=== PATIENT | female | born 1990 | race Two or more races ===

== ENCOUNTER 2024-10-31 10:13 | Emergency (ER) | payer MEDICAID, SELFPAY ==
[2024-10-31 10:57] VITALS: BP 135/88; PULSE 65; RESP 17; TEMP 36.9; O2SAT 98; BMI 27.1
--- NOTE | 2024-10-31 11:22 | PD.EDRME ---
Rapid Medical Screening Exam RME Arrival date/time: 10/31/24 10:13 Chief Complaint: Urogenital-Female Vital signs: Vital Signs Temperature 98.5 F 10/31/24 10:57 Pulse Rate 65 10/31/24 10:57 Respiratory Rate 17 10/31/24 10:57 Blood Pressure 135/88 H 10/31/24 10:57 Pulse Oximetry (%) 98 10/31/24 10:57 Oxygen Delivery Method Room Air 10/31/24 10:57 Pulse ox room air is 98% Vital signs reviewed by provider: No RME Narrative: 33-year-old female presents urgent care with complaint of right lower back pain. Patient had been seen in urgent care yesterday and discharged with a mild urinary tract infection. Patient tells me her pain is worse today than it was yesterday. Patient had episodes of vomiting.
--- NOTE | 2024-10-31 11:25 | XR_ITS ---
Examination: CT abdomen and pelvis without contrast. Coronal 3-D reconstructions. Sagittal 2-D reconstructions. Date and time of exam:October 31, 2024 1546 hours INDICATIONS: Right-sided abdominal pain beginning 3 days ago CTDI: vol (mGy): 8.23 DLP: (mGycm): 124 Technique: Axial images of the abdomen have been obtained, 3 mm slice thickness Intravenous contrast material has not been administered. Low dose protocols were performed. One or more of the following dose reduction techniques were used; automated exposure control, adjustment of the mA and/or KV according to patient size, use of iterative reconstruction technique. Findings: No focal liver or splenic lesions Gastric sutures Contracted gallbladder No pancreatic mass No renal or ureteral calculi, no hydronephrosis Aorta normal size Normal appendix No bowel obstruction Anteverted uterus No bladder mass Subtle cortical erosions contiguous endplates L5-S1 sagittal image 111 IMPRESSION: No renal or ureteral calculi, no hydronephrosis Normal appendix No bowel obstruction diverticulitis or free air Suspicious for lumbar discitis L5-S1, consider elective MRI lumbar spine follow-up, pre and post intravenous contrast
[2024-10-31 11:51] LABS: Basophils # (Auto) 0.0 Thou/mm3 (0.0-0.2); Basophils % (Auto) 0 % (0-2.5); Eosinophils # (Auto) 0.2 Thou/mm3 (0.0-0.5); Eosinophils % (Auto) 3 % (0-10); Hematocrit 35.9 % (36.0-46.0); Hemoglobin 12.3 g/dL (12.0-16.0); Immature Granulocytes Auto 0.03 Thou/mm3 (0.00-0.00); Lymphocytes # (Auto) 2.8 Thou/mm3 (1.0-4.8); Lymphocytes % (Auto) 30 % (10-50); Mean Corpuscular HGB Conc 34.3 g/dl (31.0-37.0); Mean Corpuscular Hemoglobin 31.4 pg (25.0-35.0); Mean Corpuscular Volume 92 fL (80-100); Monocytes # (Auto) 0.6 Thou/mm3 (0.0-0.8); Monocytes % (Auto) 6 % (0-12); Neutrophils # (Auto) 5.7 Thou/mm3 (1.8-7.7); Neutrophils % (Auto) 61 % (37-80); Nucleated Red Blood Cell # 0.00 Thou/mm3 (0.00-0.00); Nucleated Red Blood Cell % 0 /100 WBC (0); Platelet Count 160 Thou/mm3 (140-440); RDW Standard Deviation 41.9 fL (36.4-46.3); Red Blood Count 3.92 Miln/mm3 (4.00-5.20); White Blood Count 9.4 Thou/mm3 (3.6-11.0)
[2024-10-31 12:12] LABS: Alanine Aminotransferase 19 U/L (10-49); Albumin, Serum 4.3 gm/dL (3.5-5.0); Albumin/Globulin Ratio 1.9 (1.2-2.2); Alkaline Phosphatase 91 U/L (46-116); Anion Gap 8 (7-16); Aspartate Amino Transferase 20 U/L (0-34); BUN/Creatinine Ratio 12 Ratio (12-20); Bilirubin,Total 0.3 mg/dL (0.3-1.2); Blood Urea Nitrogen 7 mg/dL (9-23); Calcium 8.9 mg/dL (8.3-10.6); Calcium (Corrected) 8.9 mg/dL (8.5-10.1); Carbon Dioxide 27.6 mMol/L (20.0-31.0); Chloride 105 mMol/L (98-107); Creatinine (Component) 0.6 mg/dL (0.6-1.3); Estimated Creatinine Clearance 122.4 mL/min (>60); Globulin 2.3 gm/dL (2.3-3.5); Glucose 88 mg/dL (74-106); Lipase 33 U/L (12-53); Osmolality,Calculated 278 (275-295); Potassium 4.4 mMol/L (3.4-5.1); Sodium 141 mMol/L (136-145); Total Protein 6.6 gm/dL (5.7-8.2); eGFR > 60 See Note
[2024-10-31 12:53] LABS: Collection Type, Urine Clean Catch
[2024-10-31 13:27] LABS: HCG Qualitative,Urine Negative
[2024-10-31 13:29] LABS: Bilirubin,Urine Negative (Negative); Blood,Urine Negative (Negative); Clarity,Urine Clear (Clear/Hazy); Color,Urine Yellow (Lt Yel-Yel); Glucose, Urine Negative (Negative); Ketones,Urine Negative (Negative); Leukocyte Esterase,Urine Positive (Negative); Nitrite,Urine Negative (Negative); PH,Urine 6.5 (5.0-7.0); Protein,Urine Negative (Neg - Trace); RBC,Urine 2 /hpf (0-3); Specific Gravity,Urine 1.014 (1.001-1.035); Squamous Epithelial Cell,Urine 7 /hpf (0-5); Urobilinogen,Urine Negative mg/dL (0.0-1.0); WBC,Urine 3 /hpf (0-5)
[2024-10-31 14:55] VITALS: BP 127/72; PULSE 68; RESP 18; TEMP 36.8; O2SAT 98
--- NOTE | 2024-10-31 15:27 | EDNOTE_ITS ---
ED Female Urogenital RME/HPI General Chief complaint: Urogenital-Female Stated complaint: Right side flank pain on Macrobid Arrival date/time: 10/31/24 10:13 Limitations: no limitations RME / HPI RME / HPI Narrative: 33-year-old female presents urgent care with complaint of right lower back pain. Patient had been seen in urgent care yesterday and discharged with a mild urinary tract infection. Patient tells me her pain is worse today than it was yesterday. Patient had episodes of vomiting. DR. CAIO BEJARANO ED EVALUATION 33 year old female with no stated medical history presents to the ED for evaluation of bilateral flank pain R>L today. Described as aching in sensation, rating as moderate. Reportedly was evaluated at an urgent care yesterday where she was diagnosed with a UTI and started on Macrobid. Sates she began the antibiotic yesterday and today the pain remains unchanged. No relief with taking Tylenol at home. Denies urinary frequency, urgency, dysuria, hematuria, or urinary hesitancy. Denies fevers, chills, abdominal pain, n/v. Related Data Previous Rx's ?Medication ?Instructions ?Recorded ibuprofen 600 mg tablet 600 mg PO Q6H PRN pain 5 day s #20 10/31/24 tabs Allergies Allergy/AdvReac Type Severity Reaction Status Date / Time No Known Allergies Allergy Verified 10/31/24 10:17 Review of Systems Review of Systems Systems Reviewed: All systems reviewed, normal except as documented Past Medical History Social History SMOKING STATUS: Never smoker ED Exam General Limitations: Present no limitations General appearance: Present alert and in no apparent distress Head Head exam: Present atraumatic, normocephalic and normal inspection Eye Eye exam: Present normal appearance, PERRL and EOMI ENT ENT exam: Present normal exam, normal oropharynx and mucous membranes moist Neck Neck exam: Present normal inspection, full ROM and trachea midline Chest Chest inspection: Present normal inspection and symmetric chest wall rise Respiratory Respiratory exam: Present normal lung sounds bilaterally Cardiovascular Cardiovascular exam: Present regular rate, normal rhythm and normal heart sounds Abdominal Exam Abdominal exam: Present soft and normal bowel sounds Extremities Exam Extremities exam: Present normal inspection and full ROM Back Exam Back exam: Present full ROM and other (Tenderness to palpation over the right upper glute, no TTP to the SI joint, no midline tenderness, no CVA tenderness ) Neurological Exam Neurological exam: Present alert, oriented X3 and CN II-XII intact Psychiatric Psychiatric exam: Present normal affect and normal mood Skin Skin exam: Present warm, dry, intact and normal color Course Quality Measures none Orders Category Date Time Status CT abdomen pelvis wo con Stat Exams 10/31/24 11:25 Completed CBC Stat Lab 10/31/24 11:36 Completed Comprehensive Metabolic Panel Stat Lab 10/31/24 11:36 Completed HCG Qualitative,Urine Stat Lab 10/31/24 12:42 Completed Lipase Stat Lab 10/31/24 11:36 Completed Urinalysis Stat Lab 10/31/24 12:42 Completed Ketorolac Inj [Toradol Inj] Med 10/31/24 15:31 Discontinued 30 mg IM X1 ONE Ondansetron Odt [Zofran Odt] Med 10/31/24 15:31 Discontinued 4 mg PO X1 ONE oxyCODONE/APAP 5/325 [Percocet 5/325] Med 10/31/24 15:31 Discontinued 1 tab PO X1 ONE Vital Signs Vital signs: Vital Signs Temperature 98.5 F 10/31/24 10:57 Pulse Rate 65 10/31/24 10:57 Respiratory Rate 17 10/31/24 10:57 Blood Pressure 135/88 H 10/31/24 10:57 Pulse Oximetry (%) 98 10/31/24 10:57 Oxygen Delivery Method Room Air 10/31/24 10:57 Pulse ox is 98% on room air which is adequate. Urogenital - Female MDM Narrative MDM Narrative:: Charlotte Sandoval am scribing for and in the presence of Dr. Newman. Patient data External records reviewed:: None (No previous ED visits for review ) Clinical information provided by:: patient Social determinants that could affect healthcare access:: none Patient has the following chronic illnesses:: None How is presenting disease/condition affected by chronic disease/condition?: no chronic disease Evaluation data The following diagnostics were reviewed and interpreted by me:: lab results and radiology exam(s) Lab and/or radiology exams considered but not ordered:: None Interpretation Summary: Ordering Physician: Balta Solomon PA-C Date of Service: 10/31/24 Procedure(s): CT abdomen pelvis wo con Accession Number(s): [id number] cc: Adeel Barbosa MD; Niels Taylor MD; Balta Solomon PA-C~ Examination: CT abdomen and pelvis without contrast. Coronal 3-D reconstructions. Sagittal 2-D reconstructions. Date and time of exam:October 31, 2024 1546 hours INDICATIONS: Right-sided abdominal pain beginning 3 days ago CTDI: vol (mGy): 8.23 DLP: (mGycm): 124 Technique: Axial images of the abdomen have been obtained, 3 mm slice thickness Intravenous contrast material has not been administered. Low dose protocols were performed. One or more of the following dose reduction techniques were used; automated exposure control, adjustment of the mA and/or KV according to patient size, use of iterative reconstruction technique. Findings: No focal liver or splenic lesions Gastric sutures Contracted gallbladder No pancreatic mass No renal or ureteral calculi, no hydronephrosis Aorta normal size Normal appendix No bowel obstruction Anteverted uterus No bladder mass Subtle cortical erosions contiguous endplates L5-S1 sagittal image 111 IMPRESSION: No renal or ureteral calculi, no hydronephrosis Normal appendix No bowel obstruction diverticulitis or free air Suspicious for lumbar discitis L5-S1, consider elective MRI lumbar spine follow-up, pre and post intravenous contrast Dictated By: Niels Taylor MD Signed By: <Electronically signed by Niels Taylor MD in OV> 10/31/24 1448 Medications / Prescriptions Medications or Prescriptions considered but not ordered:: None Medication administrations:: Medication Administration History Discontinued Medications Ketorolac Tromethamine (Ketorolac Inj 60 Mg/2 Ml Vial) 30 mg IM X1 ONE Stop: 10/31/24 15:32 Ondansetron HCl (Ondansetron Odt 4 Mg Tabrap) 4 mg PO X1 ONE; Protocol Stop: 10/31/24 15:32 Oxycodone/Acetaminophen (Oxycodone/Apap 5/325 Tablet) 1 tab PO X1 ONE Stop: 10/31/24 15:32 See above Consultations Consultation(s) initiated? (list below): No Diagnosis Urogenital Female Differential Diagnosis: urinary tract infection, cystitis and other (pyelonphritis) Most likely diagnosis given after review of the tests above:: Lower back pain Admission Indicated Admission indicated?: not indicated Admission Request Was there a request for admission?: No Disposition Plan Disposition Plan: Discharge Discharge Attestation Discharge Attestation: The patient and all family members were given an opportunity to ask questions and understood the discharge instructions. Discharge instructions specifically effects, indications for sooner follow up or return to the emergency department, and the expected course of current diagnosis. Patient condition: Stable Discharge Plan Plan Patient Disposition: HOME (Self Care) Discharge Disposition comment: Stable for discharge home Patient condition on transfer: Stable Prescriptions/Referrals Prescriptions/Med Rec: New ibuprofen 600 mg tablet 600 mg PO Q6H PRN (Reason: pain) 5 Days Qty: 20 0RF Rx Instructions: Do not take this medication until at least 4 AM on 11/01/2024 Referrals: Adeel Barbosa MD [Primary Care Provider] - In 1 week Problem List Clinical Impression: Lower back pain Patient/Caregiver Discharge Instructions Discharge Activity: activity as tolerated Education Materials: Back Safety: Bending, Back Safety: Lifting, Back Safety: Basics of Good Posture, ED Back Care Tips Additional Instructions: Please return to the emergency department if you have any worsening or any further medical problems and we will help you. Otherwise you should follow-up with your primary care doctor within the next several days. There is a prescription for the 600 mg ibuprofen waiting for you at the pharmacy. You can take these up to every 6 hours for pain. This is an anti- inflammatory medicine and I think this can work well for you Print Language: Citizen Of [place] Stand Alone Forms: [employer] Award Info., Patient Portal Info Letter
--- NOTE | 2024-10-31 15:46 | PC.NURSE ---
Patient not in the room for medication administration at this time will try again later.
--- NOTE | 2024-10-31 16:00 | PC.NURSE ---
PT NOT IN ROOM AT THIS TIME
--- NOTE | 2024-10-31 16:00 | PC.NURSE ---
Patient not in her room at this time X2 for medication administration.
--- NOTE | 2024-10-31 16:31 | PC.NURSE ---
Patient not her in room for medication administration X3
== END 2024-10-31 16:34 | disposition home or self-care (01) ==
PROVIDERS: Physician Assistant; Emergency Provider Emergency Medicine; PCP Family Medicine
DX: M54.50 Low back pain, unspecified (principal); Z87.440 Personal history of urinary (tract) infections
CPT/HCPCS: 36415; 74176; 80053; 81001; 81025; 83690; 85025; 99283

== ENCOUNTER 2025-02-07 20:24 | Emergency (ER) | payer MEDICAID, SELFPAY ==
[2025-02-07 20:25] VITALS: BMI 28.3
--- NOTE | 2025-02-07 20:28 | EKG_ITS ---
[facility] Test Date: 2025-02-07 Pat Name: VENKATA GORDON Department: Room: - Gender: Female [employer]: : 1990 Requested By: ED Temporary Provider Order Number: [id number] Reading MD: ED Temporary Provider Measurements Intervals [place] Rate: 80 P: 59 TX: 153 QRS: 53 QRSD: 80 T: 42 QT: 362 QTc: 420 Interpretive Statements SINUS RHYTHM No previous ECG available for comparison /store/S0/[id number]/ecg/[id number].pdf
[2025-02-07 20:56] VITALS: BP 131/84; PULSE 89; RESP 20; TEMP 36.6; O2SAT 96
--- NOTE | 2025-02-07 21:13 | EDNOTE_ITS ---
ED Anxiety RME/HPI General Chief Complaint: Chest Pain Stated Complaint: CHEST PAIN, RIGHT ARM FEELS HEAVY Time Seen by Provider: 02/07/25 21:10 Arrival date/time: 02/07/25 20:24 34F with history of anxiety (2 months of Wellbutrin) presents to ED with 2 days of CP, heart palps, SOB, and anxiety. Patient denies SI/HI and URI symptoms. Limitations: no limitations Related Data Allergies Allergy/AdvReac Type Severity Reaction Status Date / Time No Known Allergies Allergy Verified 10/31/24 10:17 Review of Systems Review of Systems Systems Reviewed: All systems reviewed, normal except as documented Cardiovascular Cardiovascular: Reports as per HPI, Reports chest pain, Reports dyspnea and Reports palpitations Respiratory Respiratory: Reports as per HPI and Reports dyspnea Psychiatric Psychiatric: Reports as per HPI and Reports anxiety Endocrine Endocrine: Reports palpitations Past Medical History Social History SMOKING STATUS: Never smoker ED Exam General Limitations: Present no limitations General appearance: Present alert, in no apparent distress and anxious Head Head exam: Present atraumatic Neck Neck exam: Present normal inspection, full ROM and trachea midline Chest Chest inspection: Present normal inspection and symmetric chest wall rise Respiratory Respiratory exam: Present normal lung sounds bilaterally Neurological Exam Neurological exam: Present alert and oriented X3 Psychiatric Psychiatric exam: Present normal affect and anxious Skin Skin exam: Present warm, dry, intact and normal color Course Quality Measures none Orders Category Date Time Status EKG (ED ONLY) *Do not use* NOW Care 02/07/25 20:28 Completed EKG (ED Only) Stat Exams 02/07/25 20:28 Draft Diazepam [Valium] Med 02/07/25 21:10 Discontinued 10 mg PO X1 ONE Vital Signs Vital signs: Vital Signs Temperature 97.8 F 02/07/25 20:56 Pulse Rate 89 02/07/25 20:56 Respiratory Rate 20 02/07/25 20:56 Blood Pressure 131/84 H 02/07/25 20:56 Pulse Oximetry (%) 96 02/07/25 20:56 Oxygen Delivery Method Room Air 02/07/25 20:56 Anxiety MDM Narrative MDM Narrative: 34F with history of anxiety (2 months of Wellbutrin) presents to ED with 2 days of CP, heart palps, SOB, and anxiety. Patient denies SI/HI and URI symptoms. Physical exam reveals clear lungs and normal WOB. Patient is afebrile, alert, but anxious/crying. EKG is NSR. Valium improved symptoms. Patient data External records reviewed:: [facility] previous records Clinical information provided by:: patient Social determinants that could affect healthcare access:: mental health Patient has the following chronic illnesses:: anxiety How is presenting disease/condition affected by chronic disease/condition?: exacerbated by Evaluation data The following diagnostics were reviewed and interpreted by me:: EKG tracing(s) Lab and/or radiology exams considered but not ordered:: ordered Interpretation Summary: above Medications / Prescriptions Medications or Prescriptions considered but not ordered:: ordered Medication administrations:: Medication Administration History Discontinued Medications Diazepam (Diazepam 5 Mg Tablet) 10 mg PO X1 ONE Stop: 02/07/25 21:11 Consultations Consultation(s) initiated? (list below): No Diagnosis Differential diagnosis anxiety: hyperventilation, panic disorder, acute anxiety and other (ACS) Most likely diagnosis given after review of the tests above:: anxiety Admission Indicated Admission indicated?: not indicated Admission Request Was there a request for admission?: No Disposition Plan Disposition Plan: Discharge Discharge Attestation Discharge Attestation: The patient and all family members were given an opportunity to ask questions and understood the discharge instructions. Discharge instructions specifically effects, indications for sooner follow up or return to the emergency department, and the expected course of current diagnosis. Patient condition: Stable Discharge Plan Plan Patient Disposition: HOME (Self Care) Discharge Disposition comment: Stable Prescriptions/Referrals Referrals: No Primary/Family,Physician [Primary Care Provider] - In 1 week Problem List Clinical Impression: Anxiety Patient/Caregiver Discharge Instructions Education Materials: Your Body's Response to Anxiety Additional Instructions: Please follow-up with PCP within 24-48 hours and return immediately if symptoms worsen. See PCP about adjusting/changing meds. Print Language: [place] Stand Alone Forms: Patient Portal Info Letter FANI/MC Supervising Physician FANI/MC Supervising Physician: Dr. Tamez
[2025-02-07] MEDS: DIAZEPAM 5 MG TABLET 10 MG PO (21:15)
[2025-02-07 22:43] VITALS: BP 128/82; PULSE 87
== END 2025-02-07 22:44 | disposition home or self-care (01) ==
PROVIDERS: Emergency Provider Emergency Medicine
DX: F41.9 Anxiety disorder, unspecified (principal)
CPT/HCPCS: 93005; 99281; A9270

== ENCOUNTER 2025-02-10 22:56 | Emergency (ER) | payer MEDICAID, SELFPAY ==
[2025-02-10 22:59] VITALS: BMI 28.7
[2025-02-10 23:18] VITALS: BP 122/58; PULSE 72; RESP 18; TEMP 36.7; O2SAT 98
[2025-02-10 23:22] VITALS: BMI 28.7
--- NOTE | 2025-02-11 00:11 | EDNOTE_ITS ---
ED Anxiety RME/HPI General Chief Complaint: Anxiety Stated Complaint: ANXIETY Time Seen by Provider: 02/11/25 00:01 Arrival date/time: 02/10/25 23:04 34F with history of anxiety (was on Wellbutrin but switched to Zoloft several days ago by PCP) presents to ED with panic attack. Patient was here several days ago for this as well. Limitations: no limitations Related Data Allergies Allergy/AdvReac Type Severity Reaction Status Date / Time No Known Allergies Allergy Verified 10/31/24 10:17 Review of Systems Review of Systems Systems Reviewed: All systems reviewed, normal except as documented Psychiatric Psychiatric: Reports as per HPI, Reports anxiety and Reports panic attacks Past Medical History Social History SMOKING STATUS: Never smoker ED Exam General Limitations: Present no limitations General appearance: Present alert, in no apparent distress and anxious Head Head exam: Present atraumatic Neck Neck exam: Present normal inspection, full ROM and trachea midline Chest Chest inspection: Present normal inspection and symmetric chest wall rise Neurological Exam Neurological exam: Present alert and oriented X3 Psychiatric Psychiatric exam: Present normal affect and anxious Skin Skin exam: Present warm, dry, intact and normal color Course Quality Measures none Orders Category Date Time Status Diazepam [Valium] Med 02/11/25 00:01 Discontinued 5 mg PO X1 ONE Vital Signs Vital signs: Vital Signs Temperature 98.0 F 02/10/25 23:18 Pulse Rate 72 02/10/25 23:18 Respiratory Rate 18 02/10/25 23:18 Blood Pressure 122/58 L 02/10/25 23:18 Pulse Oximetry (%) 98 02/10/25 23:18 Oxygen Delivery Method Room Air 02/10/25 23:18 Anxiety MDM Narrative MDM Narrative: 34F with history of anxiety (was on Wellbutrin but switched to Zoloft several days ago by PCP) presents to ED with panic attack. Patient was here several days ago for this as well. Physical exam reveals anxious female. Patient is afebrile and alert. Meds and substance abuse counselor given. Patient data External records reviewed:: [facility] previous records Clinical information provided by:: patient Social determinants that could affect healthcare access:: mental health Patient has the following chronic illnesses:: anxiety How is presenting disease/condition affected by chronic disease/condition?: caused by Evaluation data The following diagnostics were reviewed and interpreted by me:: other (specify) (none) Lab and/or radiology exams considered but not ordered:: not ordered Interpretation Summary: n/a Medications / Prescriptions Medications or Prescriptions considered but not ordered:: ordered Medication administrations:: Medication Administration History Discontinued Medications Diazepam (Diazepam 5 Mg Tablet) 5 mg PO X1 ONE Stop: 02/11/25 00:02 Consultations Consultation(s) initiated? (list below): No Diagnosis Differential diagnosis anxiety: hyperventilation, panic disorder (attack) and acute anxiety Most likely diagnosis given after review of the tests above:: panic attack Admission Indicated Admission indicated?: not indicated Admission Request Was there a request for admission?: No Disposition Plan Disposition Plan: Discharge Discharge Attestation Discharge Attestation: The patient and all family members were given an opportunity to ask questions and understood the discharge instructions. Discharge instructions specifically effects, indications for sooner follow up or return to the emergency department, and the expected course of current diagnosis. Patient condition: Stable Discharge Plan Plan Patient Disposition: HOME (Self Care) Discharge Disposition comment: Stable Problem List Clinical Impression: Panic attack Patient/Caregiver Discharge Instructions Education Materials: Your Body's Response to Anxiety, Panic Disorder Tx, ED Panic Attack Additional Instructions: Please follow-up with PCP within 24-48 hours and return immediately if symptoms worsen. Print Language: Thai Stand Alone Forms: Patient Portal Info Letter FANI/MC Supervising Physician FANI/MC Supervising Physician: Dr. Lennon
[2025-02-11] MEDS: DIAZEPAM 5 MG TABLET PO (01:14)
== END 2025-02-11 01:17 | disposition home or self-care (01) ==
LOC: SERX 02-11 00:23
PROVIDERS: Emergency Provider Emergency Medicine
DX: F41.0 Panic disorder [episodic paroxysmal anxiety] (principal)
CPT/HCPCS: 99281; A9270